=== PATIENT | female | born 1960 | race Caucasian/White ===

== ENCOUNTER 2019-12-28 08:24 | Outpatient (CLI) | payer OTHER ==
--- NOTE | 2019-12-28 10:56 | RAD ---
KUB: DATE: 12/28/2019. PROVIDED CLINICAL HISTORY: Incontinence. FINDINGS: No comparisons. There is an 8 mm calcification overlying the right renal shadow. No additional urin adi tract calculi are radiographically apparent. There is a left ureteral stent present, the distal aspect of which projects inferior to the pubic symphysis in the midline, presumably within the urethr a. The proximal coil overlies the lateral aspect of the left L3 transverse process. The bowel gas p attern is nonspecific with moderate colonic fecal retention. The osseous structures demonstrate no a cute findings. IMPRESSION: 1. Left ureteral stent positioning as described. 2. An 8 mm presumed right renal calculus. POS: [facility]
== END 2019-12-28 08:25 | disposition home or self-care (01) ==
LOC: MADRAD 08:24
PROVIDERS: ATTEND Urology
DX: N20.0 Calculus of kidney (principal); Z96.0 Presence of urogenital implants
CPT/HCPCS: 74018